=== PATIENT | male | born 1985 | race Caucasian/White ===

== ENCOUNTER 2022-08-02 11:23 | Emergency (ER) | payer OTHER ==
[2022-08-02 11:40] VITALS: TEMP 97
[2022-08-02] MEDS ORDERED: LIDOCAINE 5% PATCH TOPICAL STA (12:20)
[2022-08-02] MEDS ORDERED: HYDROcodone/APAP 7.5-325MG 1 EACH TAB PO ONE (12:20)
--- NOTE | 2022-08-02 12:54 | XR ---
EXAM TYPE: LUMBAR SPINE X RAY SERIES COMPARISON: NONE HISTORY: lower back pain TECHNIQUE: 3 views are submitted. FINDINGS: Alignment is anatomic. The pedicles are intact. The transverse processes are intact. There is no s pondylolisthesis. IMPRESSION: 1. No acute process.
[2022-08-02] MEDS ORDERED: ACET/COD 300 MG/30 MG STARTER PACK 6 TAB BTL PO STA (13:06)
--- NOTE | 2022-08-02 13:07 | ED ---
Back Pain HPI - General Chief Complaint: Back Pain/Injury Stated Complaint: low back pain Time Seen by Provider: 08/02/22 12:06 Source: patient, RN notes reviewed Mode of arrival: ambulatory Limitations: no limitations - History of Present Illness Initial Comments: This a 37-year-old male presents emergency Department chief complaint low back pain. Patient states started having discomfort at work yesterday worsened that he continue to work and after he slept all night. Patient states is very stiff having low back discomfort. Patient denies any bowel, bladder incontinence or retention of saddle anesthesias. He states she's had problems with his back in the past. He states he has no pain areas on his legs no paresthesias. 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 Patient denies any associated complaints of abdominal pain. - Related Data Previous Rx's Medication Instructions Recorded Cyclobenzaprine [Flexeril] 10 mg PO TID PRN #15 tab 08/02/22 Ibuprofen [Motrin] 600 mg PO Q8HR PRN #20 tab 08/02/22 predniSONE 50 mg PO DAILY #5 tab 08/02/22 Allergies Allergy/AdvReac Type Severity Reaction Status Date / Time No Known Allergies Allergy Verified 08/02/22 11:39 Review of Systems ROS Statement: Those systems with pertinent positive or pertinent negative responses have been documented in the HPI. ROS Other: All systems not noted in ROS Statement are negative. Past Medical History Past Medical History: No Reported History History of Any Multi-Drug Resistant Organisms: None Reported Past Surgical History: No Surgical Hx Reported Past Psychological History: No Psychological Hx Reported Smoking Status: Current every day smoker Past Alcohol Use History: None Reported Past Drug Use History: None Reported General Exam Limitations: no limitations General appearance: alert, in no apparent distress Head exam: Present: atraumatic, normocephalic, normal inspection Eye exam: Present: normal appearance, PERRL, EOMI. Absent: scleral icterus, conjunctival injection, periorbital swelling ENT exam: Present: normal exam, normal oropharynx, mucous membranes moist Neck exam: Present: normal inspection, full ROM. Absent: tenderness, meningismus, lymphadenopathy Respiratory exam: Present: normal lung sounds bilaterally. Absent: respiratory distress, wheezes, rales, rhonchi, stridor Cardiovascular Exam: Present: regular rate, normal rhythm, normal heart sounds. Absent: systolic murmur, diastolic murmur, rubs, gallop, clicks GI/Abdominal exam: Present: soft, normal bowel sounds. Absent: distended, te nderness, guarding, rebound, rigid Back exam: Present: tenderness, muscle spasm, paraspinal tenderness. Absent: full ROM (Moderate discomfort with range of motion), vertebral tenderness Neurological exam: Present: alert, oriented X3, CN II-XII intact, reflexes normal. Absent: motor sensory deficit Skin exam: Present: warm, dry, intact, normal color. Absent: rash Course Vital Signs 08/02/22 11:37 Temperature 97 F L Pulse Rate 71 Respiratory 20 Rate Blood Pressure 100/64 O2 Sat by Pulse 96 Oximetry Medical Decision Making - Medical Decision Making X-ray of the lumbar spine interpreted by me and radiology no acute processes. Patient has no red flag symptoms. Patient history of his lumbar spine. Patient we discharged in stable condition". Disposition Clinical Impression: Strain of lumbar region Disposition: HOME SELF-CARE Condition: Stable Instructions (If sedation given, give patient instructions): Acute Low Back Pain (ED) Additional Instructions: Please return to the Emergency Department if symptoms worsen or any other concerns. Prescriptions: Cyclobenzaprine [Flexeril] 10 mg PO TID PRN #15 tab PRN Reason: Muscle Spasm Ibuprofen [Motrin] 600 mg PO Q8HR PRN #20 tab PRN Reason: Pain predniSONE 50 mg PO DAILY #5 tab Is patient prescribed a controlled substance at d/c from ED?: No Referrals: None,Stated [Primary Care Provider] - 1-2 days Norbert Dubois DO [Doctor of Osteopathic Medicine] - 1-2 days Time of Disposition: 13:07
[2022-08-02 13:23] VITALS: BP 104/67; PULSE 60; RESP 18
== END 2022-08-02 13:23 | disposition home or self-care (01) ==
LOC: EC 11:23
DX: S39.012A Strain of muscle, fascia and tendon of lower back, initial encounter (principal); F17.200 Nicotine dependence, unspecified, uncomplicated; X58.XXXA Exposure to other specified factors, initial encounter
CPT/HCPCS: 72100; 99283

== ENCOUNTER 2023-09-29 15:02 | Emergency (ER) | payer OTHER ==
[2023-09-29 15:36] VITALS: BP 130/86; PULSE 86; TEMP 98.1
--- NOTE | 2023-09-29 16:43 | ED ---
Back Pain HPI - General Source: patient, RN notes reviewed, old records reviewed Limitations: no limitations <Severo Potter - Last Filed: 09/29/23 16:41> - General Source: patient, RN notes reviewed Mode of arrival: ambulatory Limitations: no limitations <Simin Pang - Last Filed: 10/05/23 12:59> - General Chief Complaint: Back Pain/Injury Stated Complaint: back pain - History of Present Illness Initial Comments: This is a 38-year-old male to the ER for evaluation of back pain this is chronic pain from this patient has been here within the past year for similar pain with no acute findings or cause. No new trauma. Patient states he is debilitated was able to get up and ambulate prior to patient unable to complete activities of daily living (Severo Potter) 38-year-old male presents to the emergency department for evaluation of back pain. He states that this has been going on for around a year. He reports that last year he was evaluated for this and was prescribed steroids and pain medication. He states that after this his symptoms had improved. He reports that again for the past 1 to 2 weeks he has had this pain again. He states that it is similar to what he had experienced in the past. He denies any new injury or trauma. He denies loss of bowel or bladder function, saddle anesthesia, urinary retention. Denies recent fever, chills. (Simin Pang) - Related Data Previous Rx's Medication Instructions Recorded Cyclobenzaprine [Flexeril] 10 mg PO TID PRN #15 tab 08/02/22 Ibuprofen [Motrin] 600 mg PO Q8HR PRN #20 tab 08/02/22 predniSONE 50 mg PO DAILY #5 tab 08/02/22 Ketorolac [Toradol] 10 mg PO Q8HR #15 tab 09/29/23 Lidocaine 5% Patch [Lidoderm 5% 1 patch TOPICAL DAILY #30 patch 09/29/23 Patch] Allergies Allergy/AdvReac Type Severity Reaction Status Date / Time No Known Allergies Allergy Verified 09/29/23 15:16 Review of Systems ROS Other: All systems not noted in ROS Statement are negative. <Severo Potter - Last Filed: 09/29/23 16:41> ROS Other: All systems not noted in ROS Statement are negative. <Simin Pang - Last Filed: 10/05/23 12:59> ROS Statement: Those systems with pertinent positive or pertinent negative responses have been documented in the HPI. Past Medical History Past Medical History: No Reported History Additional Past Medical History / Comment(s): Back pain History of Any Multi-Drug Resistant Organisms: None Reported Past Surgical History: No Surgical Hx Reported Past Psychological History: No Psychological Hx Reported Smoking Status: Current every day smoker Past Alcohol Use History: None Reported Past Drug Use History: None Reported <Severo Potter Mehrdad - Last Filed: 09/29/23 16:41> General Exam Limitations: no limitations General appearance: alert, in no apparent distress Head exam: Present: atraumatic, normocephalic, normal inspection Eye exam: Present: normal appearance, PERRL, EOMI. Absent: scleral icterus, conjunctival injection, periorbital swelling ENT exam: Present: normal exam, mucous membranes moist Neck exam: Present: normal inspection. Absent: tenderness, meningismus, lymphadenopathy Respiratory exam: Present: normal lung sounds bilaterally. Absent: respiratory distress, wheezes, rales, rhonchi, stridor Cardiovascular Exam: Present: regular rate, normal rhythm, normal heart sounds. Absent: systolic murmur, diastolic murmur, rubs, gallop, clicks GI/Abdominal exam: Present: soft, normal bowel sounds. Absent: distended, tenderness, guarding, rebound, rigid Extremities exam: Present: normal inspection, full ROM, normal capillary refill. Absent: tenderness, pedal edema, joint swelling, calf tenderness Back exam: Present: normal inspection Neurological exam: Present: alert, oriented X3, CN II-XII intact Psychiatric exam: Present: normal affect, normal mood Skin exam: Present: warm, dry, intact, normal color. Absent: rash <Severo Potter - Last Filed: 09/29/23 16:41> General appearance: alert, in no apparent distress Head exam: Present: atraumatic, normocephalic, normal inspection Eye exam: Present: normal appearance, PERRL, EOMI. Absent: scleral icterus, conjunctival injection, periorbital swelling Neck exam: Present: normal inspection. Absent: tenderness, meningismus, lymphadenopathy Respiratory exam: Present: normal lung sounds bilaterally. Absent: respiratory distress, wheezes, rales, rhonchi, stridor Cardiovascular Exam: Present: regular rate, normal rhythm, normal heart sounds. Absent: systolic murmur, diastolic murmur, rubs, gallop, clicks Extremities exam: Present: normal inspection, full ROM, normal capillary refill, other (DP and PT pulses 2+). Absent: tenderness, pedal edema, joint swelling, calf tenderness Back exam: Present: full ROM, paraspinal tenderness. Absent: CVA tenderness (R), CVA tenderness (L) Neurological exam: Present: alert, oriented X3 Psychiatric exam: Present: normal affect, normal mood Skin exam: Present: warm, dry, intact, normal color. Absent: rash <Simin Pang - Last Filed: 10/05/23 12:59> Course <Severo Potter - Last Filed: 09/29/23 16:41> Vital Signs 09/29/23 09/29/23 15:14 18:33 Temperature 98.1 F Pulse Rate 86 Respiratory 20 16 Rate Blood Pressure 130/86 O2 Sat by Pulse 99 Oximetry - Reevaluation(s) Reevaluation #1: 09/29/23 16:[address] Potter completed (Severo Potter) Medical Decision Making <Simin Pang - Last Filed: 10/05/23 12:59> - Medical Decision Making Was pt. sent in by a medical professional or institution (, PA, ARCHITECTURE PROFESSOR, urgent care, hospital, or assisted...) When possible be specific @ -No Did you speak to anyone other than the patient for history (EMS, parent, family, police, friend...)? What history was obtained from this source @ -No Did you review nursing and triage notes (agree or disagree)? Why? @ -I reviewed and agree with nursing and triage notes Were old charts reviewed (outside hosp., previous admission, EMS record, old EKG, old radiological studies, urgent care reports/EKG's, assisted records)? Report findings @ -No old charts were reviewed Differential Diagnosis (chest pain, altered mental status, abdominal pain women, abdominal pain men, vaginal bleeding, weakness, fever, dyspnea, syncope, headache, dizziness, GI bleed, back pain, seizure, CVA, palpatations, mental health, musculoskeletal)? @ -Differential Back Pain: Strain, zoster, cauda equina syndrome, epidural abscess, vertebral osteomyelitis, discitis, fracture, subluxation, disc herniation, DJD, spinal stenosis, dissection, AAA, pancreatitis, peptic ulcer disease, pyelonephritis, kidney stone, this is not meant to be an all-inclusive list. EKG interpreted by me (3pts min.). @ -None X-rays interpreted by me (1pt min.). @ -X-rays of the lumbar spine show some mild degenerative changes with no acute fracture CT interpreted by me (1pt min.). @ -None done U/S interpreted by me (1pt. min.). @ -None done What testing was considered but not performed or refused? (CT, X-rays, U/S, labs)? Why? @ -None What meds were considered but not given or refused? Why? @ -None Did you discuss the management of the patient with other professionals (professionals i.e. , PA, ARCHITECTURE PROFESSOR, lab, RT, psych nurse, vp digital marketing social media and crm, blood tester fowl, teacher, special forces officer, bilingual case manager)? Give summary @ -No Was smoking cessation discussed for >3mins.? @ -No Was critical care preformed (if so, how long)? @ -No Were there social determinants of health that impacted care today? How? (Homelessness, low income, unemployed, alcoholism, drug addiction, transportation, low edu. Level, literacy, decrease access to med. care, detention, rehab)? @ -No Was there de-escalation of care discussed even if they declined (Discuss DNR or withdrawal of care, Hospice)? DNR status @ -No What co-morbidities impacted this encounter? (DM, HTN, Smoking, COPD, CAD, Cancer, CVA, ARF, Chemo, Hep., AIDS, mental health diagnosis, sleep apnea, mor bid obesity)? @ -None Was patient admitted / discharged? Hospital course, mention meds given and route, prescriptions, significant lab abnormalities, going to OR and other pertinent info. @ -Discharge. Patient presented to the emergency department for evaluation of back pain. He has experienced this in the past. He is not currently experiencing any red flag symptoms as discussed in HPI. X-rays were obtained which show no evidence of acute fracture, mild degenerative changes. Patient was provided a lidocaine patch, Toradol, Solu-Medrol, Tylenol in the emergency department. Prescriptions were sent to the patient's pharmacy for Toradol and lidocaine patches. Advised to not take ibuprofen or other NSAIDs while taking the Toradol. Advised to follow-up with his PCP or internal medicine specialist. Patient understanding and agreeable with discharge plan. Patient stable at time of discharge. Case discussed with Dr. Potter Undiagnosed new problem with uncertain prognosis? @ -No Drug Therapy requiring intensive monitoring for toxicity (Heparin, Nitro, Insulin, Cardizem)? @ -No Were any procedures done? @ -No Diagnosis/symptom? @ -Back pain Acute, or Chronic, or Acute on Chronic? @ -acute Uncomplicated (without systemic symptoms) or Complicated (systemic symptoms)? @ -uncomplicated Side effects of treatment? @ -No Exacerbation, Progression, or Severe Exacerbation? @ -No Poses a threat to life or bodily function? How? (Chest pain, [place], [place], pneumonia, PE, COPD, DKA, ARF, appy, cholecystitis, CVA, Diverticulitis, Homicidal, Suicidal, threat to staff... and all critical care pts) @ -No (Simin Pang) Disposition <Severo Potter - Last Filed: 09/29/23 16:41> Is patient prescribed a controlled substance at d/c from ED?: No <Simin Pang - Last Filed: 10/05/23 12:59> Clinical Impression: Sacro-iliac pain, Sciatica Disposition: HOME SELF-CARE Condition: Stable Instructions (If sedation given, give patient instructions): Acute Low Back Pain (ED) Additional Instructions: You were given an anti-inflammatory, steroid, lidocaine patch, and Tylenol. No narcotics were given. Take Toradol for discomfort but do not take if utilizing other anti-inflammatory medications such as ibuprofen or naproxen. Please follow up with your primary care provider and orthopedic spine if does not improve. Return to the emergency department for new or worsening symptoms. Prescriptions: Lidocaine 5% Patch [Lidoderm 5% Patch] 1 patch TOPICAL DAILY #30 patch Ketorolac [Toradol] 10 mg PO Q8HR #15 tab Referrals: None,Stated [Primary Care Provider] - 1-2 days
--- NOTE | 2023-09-29 17:01 | XR ---
EXAMINATION TYPE: XR lumbar spine 2 or 3V DATE OF EXAM: 09/29/2023 4:56 PM CLINICAL INDICATION:Male, 38 years old with history of pain; [facility] COMPARISON: 08/02/2022 TECHNIQUE: XR lumbar spine 2 or 3V - Frontal, lateral and coned in L5-S1 lateral views of the spine. FINDINGS: No evidence of any acute osseous pathology. No evidence of loss of vertebral body height i s seen. There is normal alignment of the lumbar vertebral bodies. Minimal disc space narrowing. Minim al marginal osteophyte formation throughout the visualized spine. There is facet joint arthropathy th roughout the spine. Scattered at least mild neural foraminal stenosis. IMPRESSION: 1. No acute fracture. 2. Mild multilevel disc degeneration.
[2023-09-29] MEDS: LIDOCAINE 4% PATCH TOPICAL ONE (17:21)
[2023-09-29] MEDS: methylPREDNISolone SOD SUCCI 125 MG/2 ML VIAL IM ONE (17:21)
[2023-09-29] MEDS: ACETAMINOPHEN TAB 500 MG TAB PO STA (17:22)
[2023-09-29] MEDS: KETOROLAC 15 MG/ML 1 ML VIAL IM STA (17:23)
[2023-09-29 18:47] VITALS: RESP 16
== END 2023-09-29 18:35 | disposition home or self-care (01) ==
LOC: EC 15:02
DX: M54.30 Sciatica, unspecified side (principal); M46.1 Sacroiliitis, not elsewhere classified; F17.200 Nicotine dependence, unspecified, uncomplicated
CPT/HCPCS: 72100; 99283; 96372 ×2; J2930; J1885